=== PATIENT | male | born 1950 | race African-American/Black ===

== ENCOUNTER 2020-01-18 21:11 | Emergency (ER) | payer OTHER ==
[~2020-01-18] VITALS: Ht 167.6 cm; Wt 81.6 kg
[~2020-01-18 21:11] MED LIST: ATOR40TA52 PO; HCTZ25T PO; VERA240C2 PO
[2020-01-18] MEDS ORDERED: diphenhdrAMINE HCL 50 MG/1 ML VL IV ONE (21:30)
[2020-01-18] MEDS ORDERED: methylPREDNISolone SOD SUCC 125 MG/2 ML VL IV ONE ×2 (21:30→23:30)
[2020-01-18] MEDS ORDERED: SODIUM CHLORIDE 0.9% 1,000 ML IV ONE (21:30)
[2020-01-18] MEDS ORDERED: EPINEPHrine HCL 1 MG/1 ML AMP SC ONE ×2 (21:30→23:15)
[2020-01-18] MEDS ORDERED: ALBUTEROL SULF 2.5 MG/0.5ML(0.5%) NEB SOLN NEB ONE (23:15)
[2020-01-18] MEDS ORDERED: methylPREDNISolone SOD SUCC 125 MG/2 ML VL ONE (23:27)
[2020-01-18] MEDS ORDERED: LORazepam 2MG/ML-1ML VIAL IV ONE (23:30)
[2020-01-19 01:37] VITALS: BP 135/68
[2020-01-19] MEDS ORDERED: diphenhdrAMINE HCL 50 MG/1 ML VL ONE (07:34)
== END 2020-01-19 01:53 | disposition home or self-care (01) ==
LOC: ER 21:12
DX: J30.2 Other seasonal allergic rhinitis (principal); R22.0 Localized swelling, mass and lump, head; E78.5 Hyperlipidemia, unspecified; I10 Essential (primary) hypertension; F17.210 Nicotine dependence, cigarettes, uncomplicated; Z79.899 Other long term (current) drug therapy; Z98.890 Other specified postprocedural states
CPT/HCPCS: 94640; 96361; 96372; 96374; 96375; 96376; 99285; J0171; J1200; J2060; J2930

== ENCOUNTER 2020-01-19 05:59 | Emergency (ER) | payer OTHER ==
[~2020-01-19] VITALS: Ht 172.7 cm; Wt 77.1 kg
[2020-01-19] MEDS ORDERED: diphenhdrAMINE HCL 50 MG/1 ML VL IV ONE ×2 (06:15→07:30)
[2020-01-19] MEDS ORDERED: EPINEPHrine HCL 1 MG/1 ML AMP SC ONE (06:15)
[2020-01-19] MEDS ORDERED: SODIUM CHLORIDE 0.9% 1,000 ML IV ONE (06:15)
[2020-01-19] MEDS ORDERED: methylPREDNISolone SOD SUCC 125 MG/2 ML VL IV ONE ×2 (06:15→07:30)
[2020-01-19] MEDS ORDERED: ALBUTEROL SULF 2.5 MG/0.5ML(0.5%) NEB SOLN NEB ONE (06:15)
[2020-01-19 10:01] VITALS: BP 159/86
== END 2020-01-19 10:37 | disposition home or self-care (01) ==
LOC: EDBD 05:59 → ER 05:59
DX: T78.3XXA Angioneurotic edema, initial encounter (principal); E78.5 Hyperlipidemia, unspecified; I10 Essential (primary) hypertension; F17.210 Nicotine dependence, cigarettes, uncomplicated
CPT/HCPCS: 94640; 96361; 96372; 96374; 96375; 96376; 99284; J0171; J1200; J2930; J7030